=== PATIENT | female | born 1995 | race Caucasian/White ===

== ENCOUNTER 2021-01-04 21:58 | Emergency (ER) | payer OTHER ==
[2021-01-04 22:05] VITALS: BP 106/72; PULSE 83; TEMP 98.1; BMI 17.2
== END 2021-01-04 23:48 | disposition home or self-care (01) ==
LOC: JER 21:58
DX: T78.40XA Allergy, unspecified, initial encounter (principal)
CPT/HCPCS: 99283-25; C9803; U0003; U0005